=== PATIENT | female | born 1945 ===

== ENCOUNTER 2017-04-17 10:30 | Outpatient (RCR) | payer MEDICARE, OTHER | END 2017-04-19 | disposition home or self-care (01) | LOC: PTY 10:30 | DX: S93.402A Sprain of unspecified ligament of left ankle, initial encounter (principal); S82.832A Other fracture of upper and lower end of left fibula, initial encounter for closed fracture; M84.369A Stress fracture, unspecified tibia and fibula, initial encounter for fracture | CPT/HCPCS: 97110; 97140; 97161; G8981; G8982 ==

== ENCOUNTER 2017-04-20 09:00 | Outpatient (RCR) | payer MEDICARE, OTHER | END 2017-05-20 | disposition home or self-care (01) | LOC: PTY 09:00 | DX: S93.402D Sprain of unspecified ligament of left ankle, subsequent encounter (principal); M84.369D Stress fracture, unspecified tibia and fibula, subsequent encounter for fracture with routine healing ==

== ENCOUNTER 2017-05-25 09:00 | Outpatient (RCR) | payer MEDICARE, OTHER | END 2017-06-19 | disposition home or self-care (01) | LOC: PTY 09:00 | DX: S93.402D Sprain of unspecified ligament of left ankle, subsequent encounter (principal); X58.XXXD Exposure to other specified factors, subsequent encounter | CPT/HCPCS: 97110; 97140; G8979 ==

== ENCOUNTER 2017-11-13 09:13 | Outpatient (RCR) | payer MEDICARE, OTHER | END 2017-11-19 | disposition home or self-care (01) | LOC: PTY 09:13 | DX: M54.9 Dorsalgia, unspecified (principal); S93.402D Sprain of unspecified ligament of left ankle, subsequent encounter; X58.XXXD Exposure to other specified factors, subsequent encounter | CPT/HCPCS: 97110; 97161; G8978; G8979 ==

== ENCOUNTER 2017-11-20 08:50 | Outpatient (RCR) | payer MEDICARE | END 2017-12-20 | disposition home or self-care (01) | LOC: PTY 08:50 | DX: S93.402D Sprain of unspecified ligament of left ankle, subsequent encounter (principal); X58.XXXD Exposure to other specified factors, subsequent encounter; M54.9 Dorsalgia, unspecified ==